=== PATIENT | female | born 1935 | race Caucasian/White ===

== ENCOUNTER → 2018-05-06 | Outpatient (REF) ==
[~2018-05-06] MED LIST: ARICEPT10 MG PO; LEXAPRO 10MG10 MG PO; NAMENDA 10MG TA10 MG PO; NORVASC2.5 MG PO; RISPERDAL 0.20.25 MG PO; VITAMIN D50000 I2 PO
== END ==
LOC: ZLAB.WCH 18:04
DX: Z01.89 Encounter for other specified special examinations (principal)

== ENCOUNTER → 2018-05-13 | Outpatient (REF) | LOC: ZLAB.WCH 09:01 | DX: Z53.9 Procedure and treatment not carried out, unspecified reason (principal) ==